=== PATIENT | male | born 1970 | race Two or more races ===

== ENCOUNTER 2024-11-03 10:51 | Emergency (ER) | payer OTHER ==
[~2024-11-03] VITALS: Ht 172.7 cm; Wt 100.0 kg
--- NOTE | 2024-11-03 11:05 | ED.PDOC ---
Altered Mental Status HPI Comments 54 y.o male presents to the ED via EMS for an evaluation of ALOC. 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 EMS reported BS of 253 with strong ETOH odor, state no response even with sternal rub. Patient presents to the ED ALOC and no other information has been obtained. SPO2 initially read 92% RA, was placed on 2 liters NC with SPO2 increasing to 96-98% Time Seen by MD: 10:58 Reviewed Notes: Nurses Notes, Door Machine Operator Notes, Medications, Allergies Allergies: Coded Allergies: UNOBTAINABLE (Unverified , 11/03/24) Information Source: Emergency Med Personnel Mode of Arrival: EMS Severity: Unresponsive Timing: Hours Duration: Since onset Prehospital treatment: 12 Lead EKG, Accucheck (253), Roller Turner, Oxygen (2 liters ) Quality: Decreased Alertness Recent: Other History of: Other Associated Signs and Symptoms: Other Past Medical History PAST MEDICAL HISTORY: Unobtainable Surgical History: Unobtainable Family History Family History: Unobtainable Social History Smoker: Unobtainable Alcohol: Unobtainable Drugs: Unobtainable Lives In: Unobtainable Unable to Obtain due to: Altered Mental Status Physical Exam General Appearance: Moderate Distress, Other (Alcohol on the breath) HEENT: Normal ENT Inspection, Pharynx Normal, TMs Normal Neck: Full Range of Motion, Non-Tender, Normal, Normal Inspection Respiratory: Chest Non-Tender, Lungs Clear, No Accessory Muscle Use, No Respiratory Distress, Normal Breath Sounds Cardiovascular: No Edema, No JVD, No Murmur, No Gallop, Normal Peripheral Pulses, Regular Rate/Rhythm Breast Exam: Deferred Gastrointestinal: No Organomegaly, Non Tender, No Pulsatile Mass, Normal Bowel Sounds, Soft Genitalia: Deferred Pelvic: Deferred Rectal: Deferred Extremities: No calf tenderness, Normal capillary refill, Normal inspection, Normal range of motion, Non-tender, No pedal edema Musculoskeletal : Apperance: Normal Neurologic: stamp mounter II-XII nml as Tested, Motor Weakness, No Motor Deficits, No Sensory Deficits, Other (Altered mental status) Cerebellar Function: Normal Reflexes: Normal Skin: Dry, Normal Color, Warm Lymphatic: No Adenopathy EKG EKG : Pulse Rate (adult): 80 Cardiac Rhythm: NSR Was a procedure done? Was a procedure done?: No Differential Diagnosis (ALOC) Differential Diagnosis: Dehydration, Hypoxemia, Closed Head Injury, Drug Overdose, ETOH Intoxication, Heart Failure, Renal Failure X-Ray, Labs, Meds, VS Vital Signs Date Time Temp Pulse Resp B/P (MAP) Pulse Ox O2 Delivery O2 Flow Rate FiO2 11/03/24 12:31 Room Air* 0 21 11/03/24 11:14 98 Nasal Cannula* 2 28 11/03/24 11:14 80 11/03/24 11:01 80 11/03/24 10:51 97.5 70 18 159/84 (109) 98 Lab Test 11/03/24 12:15 Range/Units White Blood Count 7.7 4.4-10.8 10^3/uL Red Blood Count 4.91 4.5-5.90 10^6/uL Hemoglobin 14.7 13.5-17.5 g/dL Hematocrit 43.9 41.0-53.0 % Mean Corpuscular Volume 89.3 80.0-100.0 fL Mean Corpuscular Hemoglobin 30.0 28.0-32.0 pg Mean Corpuscular Hemoglobin Concent 33.5 32.0-36.0 g/dL Red Cell Distribution Width 15.3 H 11.8-14.3 % Platelet Count 147 140-450 10^3/uL Mean Platelet Volume 8.2 6.9-10.8 fL Neutrophils (%) (Auto) 59.8 37.0-80.0 % Lymphocytes (%) (Auto) 29.3 10.0-50.0 % Monocytes (%) (Auto) 6.5 0.0-12.0 % Eosinophils (%) (Auto) 3.4 0.0-7.0 % Basophils (%) (Auto) 1.0 0.0-2.0 % Neutrophils # (Auto) 4.6 1.6-8.6 10 ^3/uL Lymphocytes # (Auto) 2.3 0.4-5.4 10 ^3/uL Monocytes # (Auto) 0.5 0-1.3 10 ^3/uL Eosinophils # (Auto) 0.3 0-0.8 10 ^3/uL Basophils # (Auto) 0.1 0-0.2 10 ^3/uL Nucleated Red Blood Cells 0.1 % Sodium Level 141 136-145 mmol/L Potassium Level 3.4 L 3.5-5.1 mmol/L Chloride Level 107 98-107 mmol/L Carbon Dioxide Level 25 20-31 mmol/L Anion Gap 9 5-15 Blood Urea Nitrogen 8 L 9-23 mg/dL Creatinine 0.85 0.700-1.30 mg/dL Glomerular Filtration Rate Calc 102 >90 mL/min BUN/Creatinine Ratio 9.4 L 10.0-20.0 Serum Glucose 247 H 74-106 mg/dL Calcium Level 8.5 L 8.7-10.4 mg/dL Plasma/Serum Blood Alcohol 414.8 *H <10 mg/dL Current Medications Medications (Trade) Dose Ordered Sig/Khai Route Start Time Stop Time Status Last Admin Sodium Chloride 1,000 ml @ 1,000 mls/hr Q1H ONCE IVB 11/03/24 11:15 11/03/24 12:14 DC 11/03/24 13:10 IV Hep-Lock was established The patient was given 1 L bolus of normal saline The CBC and chemistry panel shows hyperglycemia at 247 The alcohol level came in at 414.8 The family is at bedside and they stated that they would like to take the patient home The patient was able to answer questions but is still somewhat intoxicated The patient was discharged Time of 1ST Reevaluation: 11:04 Reevaluation 1ST: Unchanged Patient Education/Counseling: Pt Unresponsive Family Education/Counseling: Diagnosis, Treatment, Prognosis, Need For Follow Up Departure 1 Departure Time of Disposition: 14:34 Impression: Primary Impression: Alcohol intoxication Qualified Codes: F10.920 - Alcohol use, unspecified with intoxication, uncomplicated Disposition: 01 HOME / SELF CARE / HOMELESS Condition: Fair Discharged With: Self, Relative, Spouse Critical Care Note Critical Care Time?: No Stability Stability form required: No I personally scribed for KAYODE MEADOWS MD ([email or web address]) on 11/03/24 at 11:05. Electronically submitted by Linnette Cid ([facility]). I personally scribed for KAYODE MEADOWS MD ([email or web address]) on 11/03/24 at 11:14. Electronically submitted by Linnette Cid ([facility]). KAYODE MEADOWS MD Nov 03, 2024 11:05
--- NOTE | 2024-11-03 11:47 | ECG ---
[facility] Test Date: 2024-11-03 Test Time: 11:09:57 Pat Name: EDMOND DIGGS Department: er Room: Gender: M Supervisor Front: esmer : 1970 Requested By: EMERGENCY EMERGENCY Order Number: [id number] Reading MD: Indio Zhu Measurements Intervals [place] Rate: 80 P: -8 MA: 168 QRS: 17 QRSD: 102 T: 16 QT: 406 QTc: 469 Interpretive Statements Sinus rhythm Electronically Signed On 11-03-2024 14:53:15 PST by Indio Zhu Please click the below link to view image of tracing.
[2024-11-03 12:31] LABS: Basophils # (auto) 0.1 10 ^3/uL (0-0.2); Eosinophils # (auto) 0.3 10 ^3/uL (0-0.8); Eosinophils % (auto) 3.4 % (0.0-7.0); Hematocrit 43.9 % (41.0-53.0); Hemoglobin 14.7 g/dL (13.5-17.5); Lymphocytes # (auto) 2.3 10 ^3/uL (0.4-5.4); Lymphocytes % (auto) 29.3 % (10.0-50.0); Mean Corpuscular Hgb Conc. 33.5 g/dL (32.0-36.0); Mean Corpuscular Volume 89.3 fL (80.0-100.0); Monocytes # (auto) 0.5 10 ^3/uL (0-1.3); Monocytes % (auto) 6.5 % (0.0-12.0); Neutrophils # (auto) 4.6 10 ^3/uL (1.6-8.6); Neutrophils % (auto) 59.8 % (37.0-80.0); Nucleated Red Blood Cells % 0.1 %; Platelet Count (auto) 147 10^3/uL (140-450); Red Blood Cells 4.91 10^6/uL (4.5-5.90); Red Cell Distribution Width 15.3 % (11.8-14.3); White Blood Cell 7.7 10^3/uL (4.4-10.8)
[2024-11-03 12:40] LABS: Chloride 107 mmol/L (98-107); Sodium 141 mmol/L (136-145)
[2024-11-03 12:41] LABS: Anion Gap 9 (5-15); Carbon Dioxide 25 mmol/L (20-31)
[2024-11-03 12:42] LABS: Calcium 8.5 mg/dL (8.7-10.4); Potassium 3.4 mmol/L (3.5-5.1)
[2024-11-03 12:46] LABS: BUN/Creatinine Ratio 9.4 (10.0-20.0)
[2024-11-03 12:47] LABS: Blood Urea Nitrogen 8 mg/dL (9-23); Glucose 247 mg/dL (74-106)
[2024-11-03 13:00] LABS: Blood Alcohol 414.8 mg/dL (<10)
[2024-11-03] MEDS: SODIUM CHLORIDE 0.9% 1,000 ML IVB ONE (13:10)
[2024-11-03 15:05] VITALS: BP 133/78; PULSE 72; RESP 16; O2SAT 97
== END 2024-11-03 15:35 | disposition home or self-care (01) ==
LOC: ER 10:51 → EDBD 10:51 → ER 15:35
DX: F10.129 Alcohol abuse with intoxication, unspecified (principal); R41.82 Altered mental status, unspecified; Y90.8 Blood alcohol level of 240 mg/100 ml or more
CPT/HCPCS: 36415; 80048; 80320; 85025; 93005; 96360; 99284; J7030